=== PATIENT | female | born 1970 | race African-American/Black ===

== ENCOUNTER → 2017-07-14 16:32 | Outpatient (CLI) | payer OTHER ==
[2015-07-04 05:52] VITALS: BMI 36.1
[~2017-07-14 16:32] MED LIST: GLUCOPHAGE1000 MG PO; GLUCOTROL 5 MG T5 MG PO; NORVASC5 MG PO; TOPROL XL50 MG PO
== END | disposition home or self-care (01) ==
LOC: D.MAMMO 13:15
DX: Z12.31 Encounter for screening mammogram for malignant neoplasm of breast (principal)

== ENCOUNTER → 2019-07-31 12:30 | Outpatient (CLI) | payer OTHER ==
[2015-07-04 05:52] VITALS: BMI 36.1
== END | disposition home or self-care (01) ==
LOC: D.MAMMO 09:00
PROVIDERS: ATTEND Family Medicine Adult Medicine
DX: N63.0 Unspecified lump in unspecified breast (principal)